=== PATIENT | female | born 2000 | race Caucasian/White ===

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

== ENCOUNTER → 2021-10-26 | Outpatient (CLI) | payer OTHER, BC | LOC: LAB SHORT 17:53 | DX: R30.0 Dysuria (principal) | CPT/HCPCS: 87086 ==